=== PATIENT | male | born 1995 | race Hispanic/Latino ===

== ENCOUNTER 2017-08-01 14:53 | Emergency (ER) | payer SELFPAY ==
--- NOTE | 2017-08-01 14:53 | ED.ABDPAIN ---
HPI - Abdominal Pain <Bri Sher PA-C - Last Filed: 08/01/17 19:43> General Chief Complaint: Abdominal Pain Stated Complaint: Abdominal pain, n/v Time Seen by Provider: 08/01/17 14:53 Source: patient and EMS Mode of arrival: EMS Limitations: no limitations History of Present Illness HPI narrative: This generally healthy 22-year-old comes in today due to recurrent epigastric pain and vomiting. He states that he has had this intermittently for about 6 months. He was seen at another local ED a month or 2 ago with the same symptoms. He states he was treated with some medication and put on a bland diet and symptoms improved. He states recently, he started eating ???normally??? again, with more spicy foods that he enjoys. Today, he was working out in the sun and ate a burrito which was somewhat spicy. He states that a short time later, he started vomiting and having the epigastric pain. He states that typically he would even eat spicy food then this. He states that he vomited 8 times, has not been able to hold down any water though he tried, nor has he had fluids earlier today. He denies any radiating pain or pain elsewhere in the abdomen. He denies any urinary symptoms such as dysuria or hematuria, change in bowel or bladder habits, or blood in the stools. He denies any chest pain, dyspnea, swelling or pain in the extremities. He denies any exacerbating features such as activity, and notes that he has been playing select soccer without any problems. He states that being on the road for games can make it difficult for him to follow prescribed diet. He denies any other complaints on systems review. Notes that he has a history of anxiety for which he takes medication, but that has been stable. Related Data Home Medications Medication Instructions Recorded Confirmed hydroxyzine HCl 50 mg PO TID PRN 08/01/17 08/01/17 Previous Rx's Medication Instructions Recorded omeprazole 20 mg PO BID 10 Days #20 cap 08/01/17 ondansetron [Zofran ODT] 4 mg PO Q6H PRN 3 Days #10 tab 08/01/17 Allergies Allergy/AdvReac Type Severity Reaction Status Date / Time No Known Drug Allergies Allergy Verified 08/01/17 15:04 Review of Systems <Bri Sher PA-C - Last Filed: 08/01/17 19:43> Review of Systems All systems reviewed & are unremarkable except as noted in HPI and below Exam <Bri Sher PA-C - Last Filed: 08/01/17 19:43> Narrative Exam Narrative: GENERAL APPEARANCE: Patient sitting comfortably, in no distress. HEENT: PERRL, EOMI, no scleral icterus, conjunctivae pink, normal oropharynx NECK: Supple LUNGS: Clear to auscultation bilaterally. HEART: Rate and rhythm regular, normal S1 and S2, no S3 or S4. ABDOMEN: Soft, nondistended, bowel sounds present x 4 quadrants, no masses palpable, no hepatosplenomegaly. Moderate localized epigastric tenderness without guarding or rebound EXTREMITIES: No edema, no calf tenderness DERMATOLOGIC: No jaundice or exanthem NEUROLOGIC: Alert and oriented with normal speech and coordination Course <Bri Sher PA-C - Last Filed: 08/01/17 19:43> Orders Ordered: Discontinued Medications Al Hydrox/Mg Hydrox/Simethicone 20 ml/ Lidocaine HCl 15 ml 0 ml PO NOW ONE Stop: 08/01/17 15:07 Last Admin: 08/01/17 15:30 Dose: 40 ml Sodium Chloride (Normal Saline 0.9%) 1,000 mls @ 1,000 mls/hr IV BOLUS ONE Stop: 08/01/17 16:14 Last Infusion: 08/01/17 16:56 Dose: 0 mls/hr Admin: 08/01/17 15:30 Dose: 1,000 mls/hr Ondansetron HCl (Zofran) 4 mg IV NOW ONE Stop: 08/01/17 15:07 Last Admin: 08/01/17 15:31 Dose: 4 mg Pantoprazole Sodium (Protonix) 40 mg IV NOW ONE Stop: 08/01/17 15:07 Last Admin: 08/01/17 15:31 Dose: 40 mg Reevaluation(s) Reevaluation #1: PATIENT WAS MONITORED DURING HIS STAY. HE DID NOT HAVE ANY RECURRENT VOMITING, REPORTED RESOLUTION OF HIS PAIN. PRIOR TO DEPARTURE HE TOLERATED ORAL FLUIDS AND SALTINES. DISCUSSED IMPORTANCE OF DIETARY AND MEDICATION COMPLIANCE AND FOLLOW-UP WITH PCP Last Vital Signs Temp 97.7 F 08/01/17 14:58 Pulse 67 08/01/17 16:57 Resp 14 08/01/17 16:57 BP 120/78 08/01/17 16:57 Pulse Ox 100 08/01/17 14:58 <Burke Cardona DO - Last Filed: 08/02/17 20:52> Orders Ordered: Discontinued Medications Al Hydrox/Mg Hydrox/Simethicone 20 ml/ Lidocaine HCl 15 ml 0 ml PO NOW ONE Stop: 08/01/17 15:07 Last Admin: 08/01/17 15:30 Dose: 40 ml Sodium Chloride (Normal Saline 0.9%) 1,000 mls @ 1,000 mls/hr IV BOLUS ONE Stop: 08/01/17 16:14 Last Infusion: 08/01/17 16:56 Dose: 0 mls/hr Admin: 08/01/17 15:30 Dose: 1,000 mls/hr Ondansetron HCl (Zofran) 4 mg IV NOW ONE Stop: 08/01/17 15:07 Last Admin: 08/01/17 15:31 Dose: 4 mg Pantoprazole Sodium (Protonix) 40 mg IV NOW ONE Stop: 08/01/17 15:07 Last Admin: 08/01/17 15:31 Dose: 40 mg Last Vital Signs Temp 97.7 F 08/01/17 14:58 Pulse 67 08/01/17 16:57 Resp 14 08/01/17 16:57 BP 120/78 08/01/17 16:57 Pulse Ox 100 08/01/17 14:58 MDM - Abdominal Pain <Bri Sher PA-C - Last Filed: 08/01/17 19:43> Lab Data Result diagrams: 08/01/17 14:45 08/01/17 14:45 Lab Results 08/01/17 08/01/17 Range/Units 14:45 14:45 WBC 7.9 (4.5-11.0) X10^3/uL RBC 5.05 (4.5-5.9) X10^6/uL Hgb 15.4 (13.5-17.5) g/dL Hct 43.6 (41-53) % MCV 86.2 (80-100) fL MCH 30.4 (26-34) PG MCHC 35.2 (30-36) % RDW 12.7 (11.6-14.8) % Plt Count 274 (150-400) X10^3/uL Neut % (Auto) 38.5 L (50-75) % Lymph % (Auto) 49.4 H (25-40) % [place] % (Auto) 6.1 (3-14) % Eos % (Auto) 4.8 H (2-4) % Baso % (Auto) 1.2 (0-2) % Neut # (Auto) 3000 (3159-6657) /uL Sodium 142 (137-145) mmol/L Potassium 3.7 (3.4-5.1) mmol/L Chloride 102.0 (98-107) mmol/L Carbon Dioxide 27.0 (22-32) mmol/L BUN 16.0 (9-20) mg/dL Creatinine 1.20 (0.66-1.25) mg/dL Estimated GFR > 60.0 (>60) mL/min BUN/Creatinine Ratio 13.3 (6-22) Glucose 86 (70-100) mg/dL Calcium 9.9 (8.4-10.2) mg/dL Total Bilirubin 0.7 (0.2-1.3) mg/dL AST 47 (17-59) IU/L ALT 56 (21-72) IU/L Alkaline Phosphatase 75 (38-126) U/L Total Protein 8.4 H (6.3-8.2) g/dL Albumin 4.9 (3.5-5.0) g/dL Globulin 3.5 (1.7-4.1) g/dL Albumin/Globulin Ratio 1.4 (1.0-2.8) Lipase 83 (23-300) U/L <Burke Cardona, DO - Last Filed: 08/02/17 20:52> Lab Data Lab Results 08/01/17 08/01/17 Range/Units 14:45 14:45 WBC 7.9 (4.5-11.0) X10^3/uL RBC 5.05 (4.5-5.9) X10^6/uL Hgb 15.4 (13.5-17.5) g/dL Hct 43.6 (41-53) % MCV 86.2 (80-100) fL MCH 30.4 (26-34) PG MCHC 35.2 (30-36) % RDW 12.7 (11.6-14.8) % Plt Count 274 (150-400) X10^3/uL Neut % (Auto) 38.5 L (50-75) % Lymph % (Auto) 49.4 H (25-40) % [place] % (Auto) 6.1 (3-14) % Eos % (Auto) 4.8 H (2-4) % Baso % (Auto) 1.2 (0-2) % Neut # (Auto) 3000 (8001-8183) /uL Sodium 142 (137-145) mmol/L Potassium 3.7 (3.4-5.1) mmol/L Chloride 102.0 (98-107) mmol/L Carbon Dioxide 27.0 (22-32) mmol/L BUN 16.0 (9-20) mg/dL Creatinine 1.20 (0.66-1.25) mg/dL Estimated GFR > 60.0 (>60) mL/min BUN/Creatinine Ratio 13.3 (6-22) Glucose 86 (70-100) mg/dL Calcium 9.9 (8.4-10.2) mg/dL Total Bilirubin 0.7 (0.2-1.3) mg/dL AST 47 (17-59) IU/L ALT 56 (21-72) IU/L Alkaline Phosphatase 75 (38-126) U/L Total Protein 8.4 H (6.3-8.2) g/dL Albumin 4.9 (3.5-5.0) g/dL Globulin 3.5 (1.7-4.1) g/dL Albumin/Globulin Ratio 1.4 (1.0-2.8) Lipase 83 (23-300) U/L Discharge Plan Departure Patient Disposition: Home, Self-Care Clinical Impression: Gastritis, Esophageal reflux, Vomiting Discharge Date/Time: 08/01/17 16:59 Interventions: ED Discharge Assessment Last Done: 08/01/17 16:57 Instructions: Avoiding Foods That Cause Heartburn, DI for Heartburn, DI for Vomiting -- Adult Activity Restrictions/Additional Instructions: Stop eating spicy foods. Drink clear fluids today, rest, and you can eat a very bland diet as tolerated for the next couple of days. Try clear broth, applesauce, plain white rice, baked potato and banana. No spice! I have prescribed antinausea medicine for you as needed, and also omeprazole to help with acid reflux. You should take that twice daily about 45 min before you eat breakfast and dinner. You can get this [id number] if it is less expensive for you. You should also have some liquid antacid such as Maalox or Gaviscon on hand to use as needed. Make sure you take the Omeprazole regularly, and follow up with your PCP within a week for recheck. Return sooner if you have any acutely worsening symptoms Prescriptions: New omeprazole 20 mg capsule,delayed release(DR/EC) 20 mg PO BID 10 Days Qty: 20 RF: 0 ondansetron [Zofran ODT] 4 mg tablet,disintegrating 4 mg PO Q6H PRN (Reason: nausea and vomiting) 3 Days Qty: 10 RF: 0 No Action hydroxyzine HCl 50 mg Tablet 50 mg PO TID PRN (Reason: Anxiety) RF: 0 Referrals: Jenniffer Montejo MD [Non-Staff] - <Burke Cardona DO - Last Filed: 08/02/17 20:52> Cosign ED Attending Damianature Attestation: I was available in the department for consultation for duration of visit
[2017-08-01 14:58] VITALS: BP 119/77; PULSE 66; RESP 20; TEMP 36.5; O2SAT 100; BMI 23.5
[2017-08-01 15:12] LABS: Add Manual Diff / Slide Review NO; Basophils Percent Auto 1.2 % (0-2); Eosinophils Percent Auto 4.8 % (2-4); Hematocrit 43.6 % (41-53); Hemoglobin 15.4 g/dL (13.5-17.5); Lymphocytes Percent Auto 49.4 % (25-40); Mean Corpuscular HGB Conc 35.2 % (30-36); Mean Corpuscular Hemoglobin 30.4 PG (26-34); Mean Corpuscular Volume 86.2 fL (80-100); Monocytes Percent Auto 6.1 % (3-14); Neutrophils Absolute Auto 3000 /uL (3000-5900); Neutrophils Percent Auto 38.5 % (50-75); Platelet Count 274 X10^3/uL (150-400); Red Blood Cell Count 5.05 X10^6/uL (4.5-5.9); Red Cell Distribution Width 12.7 % (11.6-14.8); White Blood Cell Count 7.9 X10^3/uL (4.5-11.0)
[2017-08-01 15:20] LABS: Alanine Aminotransferase 56 IU/L (21-72); Albumin 4.9 g/dL (3.5-5.0); Albumin Globulin Ratio 1.4 (1.0-2.8); Alkaline Phosphatase 75 U/L (38-126); Aspartate Aminotransferase 47 IU/L (17-59); BUN Creatinine Ratio 13.3 (6-22); Bilirubin Total 0.7 mg/dL (0.2-1.3); Calcium 9.9 mg/dL (8.4-10.2); Estimated Glomerular Filt Rate > 60.0 mL/min (>60); Globulin 3.5 g/dL (1.7-4.1); Glucose 86 mg/dL (70-100); HEMOLYSIS 27 (0-50); Lipase 83 U/L (23-300); Potassium 3.7 mmol/L (3.4-5.1); Sodium 142 mmol/L (137-145); Total Protein 8.4 g/dL (6.3-8.2)
[2017-08-01] MEDS: SODIUM CHLORIDE 0.9% 1,000 ML 1000 ML IV (15:30)
[2017-08-01] MEDS: MAG HYDROX/ALUMINUM/SIMETH SUS 20 ML, LIDOCAINE VISCOUS 2% 15 ML PO (15:30)
[2017-08-01] MEDS: ONDANSETRON 4 MG/2 ML INJ IV (15:31)
[2017-08-01] MEDS: PANTOPRAZOLE 40 MG VIAL IV (15:31)
[2017-08-01 16:57] VITALS: BP 120/78; PULSE 67; RESP 14
== END 2017-08-01 16:59 | disposition home or self-care (01) ==
PROVIDERS: Emergency Provider Internal Medicine
DX: K29.70 Gastritis, unspecified, without bleeding (principal); K21.9 Gastro-esophageal reflux disease without esophagitis; R11.10 Vomiting, unspecified
CPT/HCPCS: 80053; 83690; 85025; 96361; 96374; 96375; 99283; 99284; C9113; J2405